=== PATIENT | male | born 1985 | race African-American/Black ===

== ENCOUNTER 2021-08-13 13:28 | Emergency (ER) | payer MEDICAID ==
[~2021-08-13] VITALS: Ht 175.3 cm; Wt 100.2 kg
[2021-08-13 13:32] VITALS: BP 106/81
[2021-08-13] MEDS ORDERED: SULF1TAB49 PO (16:14)
[2021-08-13] MEDS ORDERED: HYDR28CR29 TOP (16:14)
== END 2021-08-13 16:41 | disposition home or self-care (01) ==
LOC: ER 13:29
DX: L98.9 Disorder of the skin and subcutaneous tissue, unspecified (principal); F17.210 Nicotine dependence, cigarettes, uncomplicated; F12.90 Cannabis use, unspecified, uncomplicated; Z79.899 Other long term (current) drug therapy
CPT/HCPCS: 99283

== ENCOUNTER 2022-03-21 14:01 | Emergency (ER) | payer SELFPAY ==
[~2022-03-21] VITALS: Ht 177.8 cm; Wt 86.0 kg
[~2022-03-21 14:01] MED LIST: HYDR28CR29 TOP
[2022-03-21 14:08] VITALS: BP 152/73
--- NOTE | 2022-03-21 14:19 | NUR ---
Seen and discharged by provider.
== END 2022-03-21 14:20 | disposition home or self-care (01) ==
LOC: ER 14:01
DX: H11.31 Conjunctival hemorrhage, right eye (principal)
CPT/HCPCS: 99281

== ENCOUNTER 2022-03-28 02:37 | Emergency (ER) | payer MEDICAID ==
[~2022-03-28] VITALS: Ht 170.2 cm; Wt 86.4 kg
[2022-03-28 02:40] VITALS: BP 150/87
[2022-03-28] MEDS ORDERED: ondansetron 4mg rapidly disintigrating tab PO ONE (03:00)
--- NOTE | 2022-03-28 03:13 | NUR ---
pt c/o hunger. Gave him food per MD chinchilla
== END 2022-03-28 03:33 | disposition home or self-care (01) ==
LOC: ER 02:38
DX: R11.2 Nausea with vomiting, unspecified (principal); Z79.899 Other long term (current) drug therapy
CPT/HCPCS: 99283